=== PATIENT | male | born 1945 | race Caucasian/White ===

== ENCOUNTER 2021-02-15 15:33 | Emergency (ER) | payer MEDICARE ==
[2021-02-15 16:27] LABS: HEMOGLOBIN 14.3 gm/dl (14.0-17.5); RED BLOOD COUNT 4.55 M/UL (4.20-5.50)
== END 2021-02-15 20:49 | disposition home or self-care (01) ==
LOC: ER1 15:33 → CDU 20:19 → ER1 20:49
DX: G45.9 Transient cerebral ischemic attack, unspecified (principal); Z20.822 Contact with and (suspected) exposure to COVID-19
CPT/HCPCS: 70450; 71045; 80053; 82550; 82553; 83874; 84484; 85025; 93005; 99285; U0002